=== PATIENT | female | born 1945 | race Caucasian/White ===

== ENCOUNTER 2017-02-26 06:28 | Observation (INO) | payer OTHER ==
[~2017-02-26] VITALS: Ht 152.4 cm; Wt 81.6 kg
--- NOTE | ~2017-02-26 | D ---
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 The patient underwent successful device implantation without complications. HOSPITAL COURSE: The patient spent the night in the CCU on telemetry, she had no significant arrhythmias, device checked the following day showed normal device function with stable thresholds. Her chest x-ray showed stable lead position with no pneumothorax and no other acute issues. On the day of discharge, the patient was doing well. She denied any chest pain or shortness of breath. No PND, orthopnea. Her physical exam was within normal limits. Heart was regular rate and rhythm. Lungs were clear to auscultation. She had no elevated jugular venous pressure. Her incision was healed nicely with no hematoma and some mild bruising was noted. As such, she was deemed stable for discharge home. DISCHARGE INSTRUCTIONS: She was instructed to not get the incision wet for 1 week, not lift the left elbow above the shoulder for 6 weeks, and not lift more than 10 pounds with the left arm for 6 weeks. She is instructed to follow up in 7-10 days for a site check and to see me in 3 months for routine device management. DISCHARGE MEDICATIONS: Unchanged from what she came in on. <ELECTRONICALLY SIGNED> By: Adi Jane MD 03/10/17 0831 [id number] Adi Jane MD /nt
--- NOTE | ~2017-02-26 | H ---
[facility] [place] [address] HISTORY AND PHYSICAL Name: BEV XAVIER Room #: 210-P [facility] Ivan M.R.#: [id number] Admission: 02/26/17 Attend Phys: Adi Jane MD Discharge: 02/27/17 Date of : 47 Report #: [id number] THIS REPORT FOR: //name// For History and Physical, please see office documentation/handwritten note in the patient's medical record. <ELECTRONICALLY SIGNED> By: Adi Jane MD 03/10/17 0831 [id number] Adi Jane MD /
[2017-02-26] MEDS ORDERED: ZOCOR40 MG PO (06:56)
[2017-02-26] MEDS ORDERED: LEXAPRO 10 MG T10 M2 PO (06:56)
[2017-02-26] MEDS ORDERED: COREG25 MG PO (06:57)
[2017-02-26] MEDS ORDERED: HYDROCODON-ACE1 EAC7 PO (06:57)
[2017-02-26] MEDS ORDERED: AMITRIPTYLINE H10 M3 PO (06:58)
[2017-02-26] MEDS ORDERED: MAGOX 400400 MG PO (06:59)
[2017-02-26] MEDS ORDERED: POTASSIUM99 M2 PO (06:59)
[2017-02-26] MEDS ORDERED: LASIX 40 MG TAB40 M2 PO (06:59)
[2017-02-26] MEDS ORDERED: COZAAR 50 MG TA50 M2 PO (07:00)
[2017-02-26] MEDS ORDERED: ASPIR 8181 M1 PO (07:00)
[2017-02-26 07:13] VITALS: BP 130/76
[2017-02-26 07:18] LABS: BASOPHILS 0.5 % (0.0-2.0); HEMATOCRIT 42.1 % (37.0-47.0); HEMOGLOBIN 14.2 gm/dL (12.0-15.0); LYMPHOCYTES 44.8 % (24.0-44.0); MCH 30.7 pg (26.0-34.0); MCHC 33.7 g/dL (28.0-37.0); MCV 91.3 fL (80.0-100.0); MONOCYTES 6.8 % (1.0-8.0); PLATELET COUNT 160 thou/uL (150-400); POLYS 46.9 % (36.0-66.0); RBC 4.62 mil/uL (4.20-5.00); RDW 15.4 % (10.5-14.5); WBC 6.4 thou/uL (4.0-11.0)
[2017-02-26 07:19] LABS: MANUAL DIFF NO
[2017-02-26 07:27] LABS: CALCIUM 10.2 mg/dL (8.5-10.1); CREATININE 1.2 mg/dL (0.6-1.0); POTASSIUM 4.2 mmol/L (3.5-5.1)
[2017-02-26 07:32] LABS: TOTAL BILIRUBIN 0.4 mg/dL (<0.1-1.0); TOTAL PROTEIN 7.4 g/dL (6.4-8.2)
[2017-02-26 07:33] LABS: APTT 23.1 Seconds (24.5-32.8)
[2017-02-26 13:57] VITALS: BP 130/75
[2017-02-26 14:06] VITALS: BP 130/75
[2017-02-26 16:31] VITALS: BP 127/59
[2017-02-26 19:27] VITALS: BP 117/43
[2017-02-26 23:46] VITALS: BP 114/69
[2017-02-27 02:17] VITALS: BP 123/60
[2017-02-27 03:41] LABS: CALCIUM 9.4 mg/dL (8.5-10.1); CREATININE 1.2 mg/dL (0.6-1.0); POTASSIUM 4.4 mmol/L (3.5-5.1)
[2017-02-27 09:14] VITALS: BP 123/60
[2017-02-27 09:18] VITALS: BP 123/60
[2017-02-27 10:21] VITALS: BP 123/60
== END 2017-02-27 10:22 | disposition home or self-care (01) ==
LOC: CATH 06:28 → OR 06:28 → CATH 10:03 → 2N 13:04 → CATH 14:49 → 2N 02-27 10:22
PROVIDERS: Internal Medicine Cardiovascular Disease
DX: I13.0 Hypertensive heart and chronic kidney disease with heart failure and stage 1 through stage 4 chronic kidney disease, or unspecified chronic kidney disease (principal); N18.4 Chronic kidney disease, stage 4 (severe); I50.22 Chronic systolic (congestive) heart failure; I25.10 Atherosclerotic heart disease of native coronary artery without angina pectoris; I25.2 Old myocardial infarction; I25.5 Ischemic cardiomyopathy; I73.9 Peripheral vascular disease, unspecified; E78.5 Hyperlipidemia, unspecified; G47.33 Obstructive sleep apnea (adult) (pediatric); I65.22 Occlusion and stenosis of left carotid artery; I20.8 Other forms of angina pectoris; I74.8 Embolism and thrombosis of other arteries; I71.4 Abdominal aortic aneurysm, without rupture; M79.606 Pain in leg, unspecified